=== PATIENT | female | born 2000 | race Caucasian/White ===

== ENCOUNTER 2024-03-12 22:25 | Inpatient (IN) ==
[2024-03-13] MEDS ORDERED: OXYTOCIN 30 UNITS/NSS 30 UNITS/500 ML BAG IV PRN ×2 (01:53→12:24)
[2024-03-13] MEDS ORDERED: LIDOCAINE 1% LOCAL 20 ML VIAL INFIL PRN (01:53)
[2024-03-13] MEDS: LACTATED RINGER'S 1,000 ML IV PRN (02:45)
[2024-03-13 03:09] LABS: Hematocrit (blood only) 33.3 % (37.0-47.0); Hemoglobin 10.6 g/dl (12.0-16.0); Mean Corpuscular Hemoglobin 24.4 pg (25.0-34.0); Mean Corpuscular Hgb Conc 31.8 g/dL (32.0-36.0); Mean Corpuscular Volume 76.7 fL (80.0-100.0); Mean Platelet Volume 10.5 fL (9.4-12.4); Nucleated RBC # (auto) 0.02 K/uL (0.00-0.12); Nucleated RBC % (auto) 0.1 %; Platelet Count 277 K/uL (130-400); RDW Standard Deviation 38.9 fL (36.4-46.3); Red Blood Count 4.34 M/uL (4.20-5.40); White Blood Count 16.45 K/ul (4.8-10.8)
[2024-03-13] MEDS ORDERED: NALOXONE HCL 0.4 MG/1 ML VIAL/CARP IV PRN (03:12)
[2024-03-13] MEDS ORDERED: fentaNYL citrate PF 100 MCG/2 ML VIAL EPI PRN (03:12)
[2024-03-13] MEDS ORDERED: LIDOCAINE 2% MPF LOCAL 5 ML VIAL EPI PRN (03:12)
[2024-03-13] MEDS ORDERED: NALOXONE HCL 1 MG in SODIUM CHLORIDE 0.9% 1,000 ML IV PRN (03:12)
[2024-03-13] MEDS ORDERED: ROPIVACAINE 0.5% PF 5 MG/ML 20 ML VIAL EPI PRN (03:12)
[2024-03-13] MEDS ORDERED: SODIUM CHLORIDE 0.9% PF INJ 10 ML VIAL EPI PRN (03:12)
[2024-03-13] MEDS ORDERED: ePHEDrine sulfate 50 MG/ML AMP IV PRN (03:12)
[2024-03-13] MEDS ORDERED: diphenhydrAMINE 50 MG/ML VIAL IV PRN (03:12)
[2024-03-13] MEDS ORDERED: BUPIVACAINE 0.25% PF 30 ML VIAL EPI PRN (03:12)
[2024-03-13] MEDS ORDERED: NALBUPHINE HCL 5 MG in SYRINGE 0 ML IV PRN (03:12)
--- NOTE | 2024-03-13 03:12 | Anesthesiology Consultation ---
Date of Service March 13, 2024 Assessment & Plan (1) Encounter for pre-operative examination: Chart Review Chart Review: Patient NOT seen in Pre Admission Testing and Acceptable Risk for Labor Epidural Consults Requested none History Height/Weight Height: 5 ft 5 in Weight: 67.585 kg Allergies Allergy/AdvReac Type Severity Reaction Status Date / Time No Known Allergies Allergy Verified 03/07/24 12:59 Medications Home Medications Medication Instructions Recorded Confirmed Last Taken vits no.124-ferrous fum 1 tab PO DAILY 03/12/24 03/12/24 03/11/24 27 mg iron-folic acid 800 mcg tablet ( Vitamin) Past Medical History Medical History Hx of renal calculi No pertinent past medical history Past Family History Family History Mother Epilepsy Denies family history of Ovarian cancer Prostate cancer Myocardial infarction Breast cancer Colorectal cancer Uterine cancer Past Surgical History Surgical History S/P wisdom tooth extraction Social History Smoking Status: Never smoker Do You Dip or Chew Tobacco: No Hx Alcohol Use: Yes Alcohol type: beer Hx Substance Use: No Physical Exam Vital Signs Last Vital Signs Temp 98.2 F 03/13/24 01:51 Pulse 97 H 03/13/24 01:51 Resp 18 03/12/24 22:44 BP 129/77 03/13/24 01:51 Testing Laboratory Results 03/13/24 02:05
[2024-03-13] MEDS: fentANYL 2 MCG/ML BUPIVacaine 0.125%-NSS 100ML BAG EPI PRN (03:40)
[2024-03-13] MEDS: LIDOCAINE 2%/EPINEPHRINE 1:200,000 20 ML PF EPI STA (03:43)
[2024-03-13] MEDS: BUPIVACAINE 0.25% PF 30 ML VIAL EPI STA (03:43)
[2024-03-13] MEDS: fentANYL 2 MCG/ML BUPIVacaine 0.125%-NSS 100ML BAG ONE (03:49)
[2024-03-13] MEDS: SODIUM CHLORIDE 0.9% PF INJ 10 ML VIAL ONE (03:50)
[2024-03-13] MEDS: BUPIVACAINE 0.25% PF 30 ML VIAL ONE (03:50)
[2024-03-13] MEDS: LIDOCAINE 2%/EPINEPHRINE 1:200,000 20 ML PF ONE (03:50)
[2024-03-13] MEDS: fentaNYL citrate PF 100 MCG/2 ML VIAL EPI STA (03:50)
[2024-03-13] MEDS: SODIUM CHLORIDE 0.9% PF INJ 10 ML VIAL EPI STA (03:50)
[2024-03-13] MEDS: fentaNYL citrate PF 100 MCG/2 ML VIAL ONE (03:51)
[2024-03-13] MEDS: ePHEDrine sulfate 50 MG/ML AMP ONE (03:51)
--- NOTE | 2024-03-13 07:11 | History & Physical Report ---
Date of Service March 13, 2024 Assessment & Plan (1) Club foot of fetus affecting antepartum care of mother: Plan: Cervix is involved from fingertip to 2 cm 90% contractions every 3 minutes painful epidural artificial rupture of membranes expectant management Admission and Anticipated Discharge Date Admission Date: March 13, 2024 History of Present Illness Primary Care Provider: Susan Morataya MD Visit DANNIE Calculator Estimated Delivery Date Method Current WG Current Estimate 03/25/24 LMP (Certain) 37w 3d Other Estimates 03/24/24 Ultrasound #1 37w 4d LMP: 06/19/23 : 1 Full term: 0 Premature: 0 Total Number of Induced Abortions: 0 Total Number of Spontaneous Abortions: 0 Ectopics: 0 Multiple births: 0 Number of Living Children: 0 and Delivery Plans anatomy US--? left club foot--> nl extremities at followup ED visit 12/13--right hydro, uti, 8mm right nonobstructing stone -f/u with PCP and urology Plans [facility] Lise Kulkarni for peds. Allergies Allergy/AdvReac Type Severity Reaction Status Date / Time No Known Allergies Allergy Verified 03/07/24 12:59 Home Medications Medication Instructions Recorded Confirmed Type vits no.124-ferrous fum 1 tab PO DAILY 03/12/24 03/12/24 History 27 mg iron-folic acid 800 mcg tablet ( Vitamin) Patient History Medical History Hx of renal calculi No pertinent past medical history Surgical History S/P wisdom tooth extraction Family History Mother Epilepsy Denies family history of Ovarian cancer Prostate cancer Myocardial infarction Breast cancer Colorectal cancer Uterine cancer Social History Smoking Status: Never smoker Second Hand Exposure: No; Do You Dip or Chew Tobacco: No; Hx Alcohol Use: Yes Alcohol type: beer Alcohol Intake Frequency: Monthly or Less Hx Substance Use: No Preferred Language: [place] Visual Impairment: No Limitations Hearing Ability: Normal Corrective Therapist Required: No Beliefs That Will Affect Care: None marital status: marital status details: Jorge Alberto Nieves(23) [phone] Current Living Situation: Spouse Current Living Situation Comment: lives with spouse, no pets current occupational status: employed 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 How many Children do You have: 0 Feels Safe at Home: Yes Safety Concerns: Feels Safe At This Time Childhood Exposure to Second-Hand Smoke: No Dental Care, Regularly: Yes Physical Activity Frequency: 3-4 Times per Week Seatbelt Use: always Sunscreen Use: Yes Assistive Devices: None Physical Exam Constitutional: WD/WN, vitals as above well developed and well nourished Respiratory: normal respiratory effort, lungs clear to auscultation normal respiratory effort Cardiovascular: RRR, no murmur, no edema Gastrointestinal (Abdomen): normal bowel sounds, soft, nontender, no hepatosplenomegaly Results & Data Vital Signs (Past 12 Hours) Vital Signs Temp Pulse Resp BP Pulse Ox 03/13/24 07:05 98 H 100 03/13/24 07:00 87 100 03/13/24 06:55 98 H 99 03/13/24 06:50 87 99 03/13/24 06:46 88 116/69 03/13/24 06:45 101 H 98 03/13/24 06:40 87 99 03/13/24 06:35 90 99 03/13/24 06:30 96 H 98 03/13/24 06:25 100 H 99 03/13/24 06:20 94 H 99 03/13/24 06:15 102 H 119/73 99 03/13/24 06:10 101 H 98 03/13/24 06:05 104 H 98 03/13/24 06:00 105 H 98 03/13/24 05:55 93 H 98 03/13/24 05:50 87 98 03/13/24 05:45 98 03/13/24 05:45 107 H 03/13/24 05:45 99 H 119/75 03/13/24 05:40 108 H 99 03/13/24 05:35 107 H 99 03/13/24 05:30 106 H 98 03/13/24 05:25 112 H 98 03/13/24 05:20 99 H 98 03/13/24 05:15 98 03/13/24 05:15 83 03/13/24 05:15 108 H 102/64 03/13/24 05:10 82 98 03/13/24 05:05 85 98 03/13/24 05:00 99 H 18 99 03/13/24 04:55 99 H 99 03/13/24 04:50 105 H 99 03/13/24 04:49 98.2 F 03/13/24 04:45 92 H 115/71 98 03/13/24 04:40 100 H 99 03/13/24 04:35 79 98 03/13/24 04:30 85 18 98 03/13/24 04:25 83 99 03/13/24 04:20 84 98 03/13/24 04:15 99 03/13/24 04:15 81 03/13/24 04:15 85 114/64 03/13/24 04:10 84 98 03/13/24 04:05 82 98 03/13/24 04:00 89 18 99 03/13/24 03:55 89 99 03/13/24 03:50 84 99 03/13/24 03:45 99 03/13/24 03:45 93 H 03/13/24 03:45 100 H 116/64 03/13/24 03:40 93 H 100 03/13/24 03:39 101 H 119/68 03/13/24 03:37 93 H 115/65 03/13/24 03:35 97 H 114/64 99 03/13/24 03:34 91 H 119/66 03/13/24 03:30 104 H 100 03/13/24 03:25 108 H 100 03/13/24 03:23 109 H 133/87 03/13/24 03:21 120 H 130/102 H 03/13/24 03:20 124 H 100 03/13/24 01:51 98.2 F 97 H 129/77 03/12/24 22:44 97.5 F L 18 03/12/24 22:42 91 H 120/77 Coding Level of Care Code None Diagnoses Club foot of fetus affecting antepartum care of mother [id number]
--- NOTE | 2024-03-13 10:46 | Labor Progress Brief Note ---
Date of Service March 13, 2024 Subjective Has epidural, feeling pressure with ctx. FHT 120s, mod anatoliy, +accels, early decelerations and some variable decelerations [place] Q 2-4 Cervix 9.5/100/0 Will empty bladder and begin to push. Assessment & Plan Admission and Anticipated Discharge Date Admission Date: March 13, 2024 Results & Data Vital Signs (Past 12 Hours) Vital Signs Temp Pulse Resp BP Pulse Ox 03/13/24 10:40 91 H 99 03/13/24 10:35 72 97 03/13/24 10:30 67 98 03/13/24 10:25 84 99 03/13/24 10:20 86 97 03/13/24 10:15 98 03/13/24 10:15 73 03/13/24 10:15 78 107/62 03/13/24 10:10 79 98 03/13/24 10:05 77 98 03/13/24 10:01 20 03/13/24 10:01 20 03/13/24 10:00 71 98 03/13/24 09:55 75 98 03/13/24 09:50 76 98 03/13/24 09:46 71 103/61 03/13/24 09:45 71 99 03/13/24 09:40 75 98 03/13/24 09:35 75 99 03/13/24 09:31 20 03/13/24 09:31 20 03/13/24 09:30 75 99 03/13/24 09:27 36.5 C 03/13/24 09:25 95 H 100 03/13/24 09:20 97 H 100 03/13/24 09:15 82 114/63 100 03/13/24 09:10 74 100 03/13/24 09:05 95 H 100 03/13/24 09:01 20 03/13/24 09:01 20 03/13/24 09:00 73 100 03/13/24 08:55 90 100 03/13/24 08:50 65 100 03/13/24 08:45 100 03/13/24 08:45 85 03/13/24 08:45 74 112/70 03/13/24 08:40 93 H 100 03/13/24 08:35 84 100 03/13/24 08:30 80 100 03/13/24 08:25 80 100 03/13/24 08:20 87 99 03/13/24 08:16 81 110/72 03/13/24 08:15 88 100 03/13/24 08:10 93 H 100 03/13/24 08:05 123 H 100 03/13/24 08:01 20 03/13/24 08:01 20 03/13/24 08:00 92 H 99 03/13/24 07:55 78 99 03/13/24 07:50 90 100 03/13/24 07:45 100 03/13/24 07:45 93 H 03/13/24 07:45 90 116/73 03/13/24 07:40 88 100 03/13/24 07:35 84 100 03/13/24 07:31 20 03/13/24 07:31 36.8 C 20 03/13/24 07:30 93 H 100 03/13/24 07:25 81 100 03/13/24 07:20 84 100 03/13/24 07:16 96 H 114/66 03/13/24 07:15 95 H 100 03/13/24 07:10 92 H 100 03/13/24 07:05 98 H 100 03/13/24 07:00 87 100 03/13/24 06:55 98 H 99 03/13/24 06:50 87 99 03/13/24 06:46 88 116/69 03/13/24 06:45 101 H 98 03/13/24 06:40 87 99 03/13/24 06:35 90 99 03/13/24 06:30 96 H 98 03/13/24 06:25 100 H 99 03/13/24 06:20 94 H 99 03/13/24 06:15 102 H 119/73 99 03/13/24 06:10 101 H 98 03/13/24 06:05 104 H 98 03/13/24 06:00 105 H 98 03/13/24 05:55 93 H 98 03/13/24 05:50 87 98 03/13/24 05:45 98 03/13/24 05:45 107 H 03/13/24 05:45 99 H 119/75 03/13/24 05:40 108 H 99 03/13/24 05:35 107 H 99 03/13/24 05:30 106 H 98 03/13/24 05:25 112 H 98 03/13/24 05:20 99 H 98 03/13/24 05:15 98 03/13/24 05:15 83 03/13/24 05:15 108 H 102/64 03/13/24 05:10 82 98 03/13/24 05:05 85 98 03/13/24 05:00 99 H 18 99 03/13/24 04:55 99 H 99 03/13/24 04:50 105 H 99 03/13/24 04:49 36.8 C 03/13/24 04:45 92 H 115/71 98 03/13/24 04:40 100 H 99 03/13/24 04:35 79 98 03/13/24 04:30 85 18 98 03/13/24 04:25 83 99 03/13/24 04:20 84 98 03/13/24 04:15 99 03/13/24 04:15 81 03/13/24 04:15 85 114/64 03/13/24 04:10 84 98 03/13/24 04:05 82 98 03/13/24 04:00 89 18 99 03/13/24 03:55 89 99 03/13/24 03:50 84 99 03/13/24 03:45 99 03/13/24 03:45 93 H 03/13/24 03:45 100 H 116/64 03/13/24 03:40 93 H 100 03/13/24 03:39 101 H 119/68 03/13/24 03:37 93 H 115/65 03/13/24 03:35 97 H 114/64 99 03/13/24 03:34 91 H 119/66 03/13/24 03:30 104 H 100 03/13/24 03:25 108 H 100 03/13/24 03:23 109 H 133/87 03/13/24 03:21 120 H 130/102 H 03/13/24 03:20 124 H 100 03/13/24 01:51 36.8 C 97 H 129/77 Coding Level of Care Code None
[2024-03-13] MEDS: OXYTOCIN 30 UNITS/NSS 30 UNITS/500 ML BAG IV PRN (11:21)
[2024-03-13] MEDS: METHYLERGONOVINE MALEATE 0.2 MG/ML AMP ONE (11:26)
--- NOTE | 2024-03-13 11:51 | Delivery Summary ---
Vaginal Delivery Summary Date of Service March 13, 2024 Vaginal Delivery Summary and 1st Degree LAC Vaginal Delivery Summary: Pre-delivery diagnoses: 23yo @ 38 2/, spontaneous labor Post-delivery diagnoses: same Procedure: spontaneous vaginal delivery Surgeon: Mita Hill DO Complications: none Findings: Viable male . Apgars: 8/9. Weight pending, please see nursery records. QBL: 631ml Description of delivery: The patient developed variable decelerations, cervix exam showed that she had progressed to complete with epidural anesthesia. She then began to push. She had excellent pushing effort and progress and she spontaneously vaginally delivered a viable from the cephalic presentation. The head delivered in TAYA position. The anterior shoulder delivered, followed by the posterior shoulder, followed by the body. The baby w as placed on mother's abdomen, the baby was vigorous and a spontaneous cry was heard. Delayed cord clamping was employed, and the cord was doubly clamped and cut. Cord blood was obtained. The placenta was delivered spontaneously intact with a 3-vessel cord. The uterus and vagina were swept of clots and debris. Due to larger than average initial blood loss, one dose methergine was given - this and uterine massage worked well to control bleeding. IV pitocin was given. The uterus became firm. The cervix, vagina, and perineum were inspected and a deep right vaginal sulcal tear and a 1st degree perineal laceration were noted and repaired with 3-0 Vicryl. Excellent hemostasis was observed. The mother and baby are recovering in stable and good condition in the room. Sponge, needle and instrument counts were correct x 2. Mita Hill DO [facility] Vaginal Delivery Charge Vaginal Delivery Codes: 87176 global code for the antepartum, delivery, and post- Delivery Type Details: and 1st Degree LAC
[2024-03-13] MEDS ORDERED: ONDANSETRON INJ 2 MG/ML 2 ML VIAL IV PRN (12:06)
[2024-03-13] MEDS ORDERED: HYDROCORTISONE ACETATE 25 MG SUPP PR PRN (12:12)
[2024-03-13] MEDS ORDERED: bisacodyL 10 MG SUPP PR PRN (12:12)
[2024-03-13] MEDS ORDERED: oxyCODONE/ACETAMINOPHEN 5mg/325mg TAB PO PRN (12:12)
[2024-03-13] MEDS: METHYLERGONOVINE MALEATE 0.2 MG/ML AMP IM ONE (12:19)
[2024-03-13] MEDS: DIPHTHER/TETAN/PERTUS Vaccine (Tdap, Adol/Adult) 0.5mL IM ONE (13:13)
[2024-03-13] MEDS: ACETAMINOPHEN 325 MG TAB PO PRN (14:27)
--- NOTE | 2024-03-13 17:01 | Anesthesia Procedure Note ---
Date of Service March 13, 2024 Anesthesia Post Epidural Note Vital Signs Vital Signs: Temp Pulse Resp BP Pulse Ox O2 Del Method 36.4 C L 92 H 20 116/80 98 Room Air 03/13/24 14:40 03/13/24 14:40 03/13/24 14:40 03/13/24 14:40 03/13/24 14:40 03/13/24 14:40 Notes Mental Status: alert / awake / arousable Nausea / Vomiting: adequately controlled Pain: adequately controlled Airway Patency, RR, SpO2: stable & adequate BP & HR: stable & adequate Hydration State: stable & adequate Neuraxial Anesthesia: was administered and sensory block is resolving Anesthetic Complications: no major complications apparent and Pt Satisfied with anesthetic care Epidural: Removed without complications and With tip intact
[2024-03-13] MEDS: IBUPROFEN 600 MG TAB PO PRN (18:36)
[2024-03-13] MEDS: BENZOCAINE 20% SPRY 85 APPLN/85 GM CAN EXT PRN (18:37)
[2024-03-13] MEDS: DOCUSATE SODIUM 100 MG CAP PO SCH (21:20)
--- NOTE | 2024-03-14 06:00 | Obstetrical Progress Note ---
Date of Service March 14, 2024 Assessment & Plan (1) care following vaginal delivery: Plan: Doing well Encourage ambulation Routine post care Admission and Anticipated Discharge Date Admission Date: March 13, 2024 Supervising Physician Co-Signing Physician Notes Resident Physician Supervision Note: I was present with Dr. Laurent during the history and exam. I discussed the case with the resident and agree with the findings and plan as documented in the note. Any exceptions or clarifications are listed here: PPD#1 doing well. Routine care, plan for DC tomorrow. Documented By: Mita Hill, Subjective 23 yo post day 1 s/p Ambulation: ambulating normally Voiding: no voiding problems Passing Gas:: Yes Diet Tolerance:: regular diet Lochia:: Small Feeding Type:: breast feeding Current Pain Level: minimal Resting comfortably this AM in NAD. Denies MACKENZIE, CP, SOB, N/V/D, LE pain/swelling. Review of Systems Review of Systems: reviewed, per HPI Physical Exam Physical Exam: General: patient resting comfortably, NAD, non-toxic in appearance, answers questions appropriately. Skin: warm, dry, intact HEENT: NC/AT, anicteric sclera, conjunctiva without injection, moist mucus membranes. Heart: +S1/S2, regular, no m/r/g Lungs: equal air entry bilaterally, no rales/rhonchi/wheezes Abd: +BS, soft, NT/ND, uterine fundus firm at umbilicus Ext: warm, no clubbing/cyanosis or edema, Keegan's neg. Neuro: nonfocal, speech intact, no facial droop, moving all extremities Results & Data Vital Signs (Past 12 Hours) Vital Signs Temp Pulse Resp BP Pulse Ox O2 Del Method 03/14/24 03:29 36.6 C 80 18 101/67 99 Room Air 03/13/24 23:04 36.7 C 74 16 112/67 98 Room Air 03/13/24 19:25 36.5 C 88 18 119/75 98 Room Air Resident Activity Tracking Resident Involvement: Resident Care Provided Care Provided: Adult Hospital Medicine
[2024-03-14 07:07] LABS: Hematocrit (blood only) 27.3 % (37.0-47.0); Hemoglobin 8.4 g/dl (12.0-16.0)
[2024-03-14] MEDS: PRENATAL VITAMIN 1 TAB PO SCH (07:40)
--- NOTE | 2024-03-14 12:17 | Ultrasound Report ---
LEFT LOWER EXTREMITY VENOUS DOPPLER HISTORY: Left leg swelling. r/o DVT COMPARISON STUDY: None. FINDINGS: There is normal compressibility, flow, and augmentation within the left lower extremity matt p venous system. IMPRESSION: No DVT within the left lower extremity. ACT 112: Negative or not required by law. Electronically signed by: Zen Russell M.D. 03/14/2024 12:16 PM
[2024-03-14] MEDS: bisacodyL 5 MG TABEC PO SCH (20:39)
--- NOTE | 2024-03-15 06:18 | Obstetrical Progress Note ---
Date of Service March 15, 2024 Assessment & Plan (1) care following vaginal delivery: Plan: Doing well Encourage ambulation Routine post care dc today Admission and Anticipated Discharge Date Admission Date: March 13, 2024 Supervising Physician Co-Signing Physician Notes Resident Physician Supervision Note: I interviewed and examined the patient. Discussed with Dr. Laurent and agree with findings and plan as documented in the note. Any exceptions or clarifications are listed here: Doing well Ready for d/c. Instructions given. Documented By: Zelda Lozano MD, FACOG Subjective 23 yo post day 2 s/p Ambulation: ambulating normally Voiding: no voiding problems Passing Gas:: Yes Diet Tolerance:: regular diet Lochia:: Small Feeding Type:: breast feeding Current Pain Level: minimal Resting comfortably this AM in NAD. Denies MACKENZIE, CP, SOB, N/V/D, LE pain/swelling. Review of Systems Review of Systems: reviewed, per HPI Physical Exam Physical Exam: General: patient resting comfortably, NAD, non-toxic in appearance, answers questions appropriately. Skin: warm, dry, intact HEENT: NC/AT, anicteric sclera, conjunctiva without injection, moist mucus membranes. Heart: +S1/S2, regular, no m/r/g Lungs: equal air entry bilaterally, no rales/rhonchi/wheezes Abd: +BS, soft, NT/ND, uterine fundus firm at umbilicus Ext: warm, no clubbing/cyanosis or edema, Keegan's neg. Neuro: nonfocal, speech intact, no facial droop, moving all extremities Results & Data Vital Signs (Past 12 Hours) Vital Signs Temp Pulse Resp BP O2 Del Method 03/15/24 00:46 36.6 C 91 H 18 126/79 Room Air 03/14/24 20:15 36.3 C L 99 H 18 124/78 Room Air Resident Activity Tracking Resident Involvement: Resident Care Provided Care Provided: Adult Hospital Medicine
== END 2024-03-15 14:30 | disposition home or self-care (01) | DRG 807 ==
LOC: OPB 22:25 → 4S1 22:26 → 4E2 03-13 15:10